=== PATIENT | female | born 1955 | race Hispanic/Latino ===

== ENCOUNTER 2016-09-19 16:45 | Emergency (ER) | payer MEDICARE, OTHER ==
[2016-09-19 16:58] VITALS: RESP 18; TEMP 98.3; O2SAT 96; BMI 27.3
[2016-09-19 17:51] VITALS: BP 122/69; PULSE 79
--- NOTE | 2016-09-19 19:13 | ED PDOC ---
Arrival/HPI - General Chief Complaint: Trauma Time Seen by Provider: 09/19/16 17:07 Historian: Patient - History of Present Illness Narrative History of Present Illness (Text): 09/19/16 17:07 A 61 year old female, whose past medical history includes herniated disc, presents to the emergency department complaining of lower back and buttock pain. Patient states she was standing on the 5th step and when she went to turn around she slipped and sled down prior to arrival. Patient did not hit her head or loss consciousness. Pain does not radiate down the lower extremities. Patient denies any any bowel/bladder incontinence, saddle anesthesia, or any other complaints at this time. Patient denies any symptom prior to the fall. PMD: Dr Santillan Time/Duration: Prior to Arrival Symptom Onset: Sudden Symptom Course: Unchanged Quality: Other Activities at Onset: Rest Context: Standing Past Medical History - Provider Review Nursing Documentation Reviewed: Yes - Infectious Disease Hx of Infectious Diseases: None - Tetanus Immunization Tetanus Immunization: Unknown - Reproductive Menopause: Yes - Cardiac Hx Pacemaker: No - Pulmonary Other/Comment: patient active heavy smoker - Neurological Hx Paralysis: No - HEENT Other/Comment: tonsillectomy as a child - Endocrine/Metabolic Hx Hypothyroidism: Yes - Hematological/Oncological Hx Blood Transfusions: No Hx Blood Transfusion Reaction: No - Integumentary Other/Comment: October 2013- 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 - Dr Doyle [facility] - Musculoskeletal/Rheumatological Hx Musculoskeletal Disorders: Yes - Gastrointestinal Other/Comment: history of gastric sleeve at [facility] jan 2014, also inguinal hernia repair surgery at same time, pt states she has lost 125 pounds since her surgery - Genitourinary/Gynecological Hx Genitourinary Disorders: Yes Hx Urinary Tract Infection: Yes Other/Comment: history of bladder lift 10 years ago and then bladder mesh 5 years ago - Psychiatric Hx Emotional Abuse: No Hx Physical Abuse: No Hx Substance Use: No - Surgical History Hx Cholecystectomy: Yes - Anesthesia Hx Anesthesia Reactions: No Hx Malignant Hyperthermia: No - Suicidal Assessment Feels Threatened In Home Enviroment: No Family/Social History - Physician Review Nursing Documentation Reviewed: Yes Family/Social History: Unknown Family HX Smoking Status: Heavy Smoker > 10 Cigarettes Daily Hx Alcohol Use: Yes Frequency of alcohol use: Socially Hx Substance Use: No Hx Substance Use Treatment: No Allergies/Home Meds Allergies/Adverse Reactions: Allergies codeine Allergy (Verified 09/19/16 16:56) ANAPHYLAXIS diazepam Allergy (Verified 09/19/16 16:56) ANAPHYLAXIS EGG Allergy (Verified 09/19/16 16:56) ANAPHYLAXIS iodine Allergy (Verified 09/19/16 16:56) SWELLING shellfish derived Allergy (Verified 09/19/16 16:56) SWELLING Home Medications: Home Meds Medication Instructions Recorded Confirmed Levothyroxine Sodium 137 mcg PO DAILY 07/17/12 12/30/14 [Levothyroxine] Simvastatin 10 mg PO DAILY 07/17/12 12/30/14 Biotin 1,000 mcg PO DAILY 02/07/14 12/30/14 Calcium Citrate 500 mg PO BID 02/07/14 12/30/14 Cyanocobalamin [Vitamin B12] 500 mcg PO DAILY 10/01/14 12/30/14 Meloxicam [Mobic] 15 mg PO DAILY 10/28/14 12/30/14 Omeprazole [Prilosec] 20 mg PO DAILY 10/28/14 12/30/14 Ped Multivit 43/Iron Fumarate 1 ctb PO DAILY 10/28/14 12/30/14 [Flintstones Complete] Tramadol HCl [Ultram] 1 tab PO TID 11/04/14 12/30/14 Review of Systems - Physician Review All systems were reviewed & negative as marked: Yes - Review of Systems Constitutional: absent: Other (head trauma) Musculoskeletal: Back Pain Neurological: absent: Headache, Dizziness, Focal Weakness, Other (saddle anesthesia) Physical Exam Vital Signs Reviewed: Yes Vital Signs Temp Pulse Resp BP Pulse Ox 09/19/16 17:51 79 18 122/69 96 09/19/16 16:57 98.3 F 84 18 124/74 96 Temperature: Afebrile Blood Pressure: Normal Pulse: Regular Respiratory Rate: Normal Appearance: Positive for: Well-Appearing, Non-Toxic, Comfortable Pain Distress: None Mental Status: Positive for: Alert and Oriented X 3 - Systems Exam Head: Present: Atraumatic, Normocephalic Pupils: Present: PERRL Extroacular Muscles: Present: EOMI Conjunctiva: Present: Normal Mouth: Present: Moist Mucous Membranes Neck: Present: Normal Range of Motion Respiratory/Chest: Present: Clear to Auscultation, Good Air Exchange. No: Respiratory Distress, Accessory Muscle Use Cardiovascular: Present: Regular Rate and Rhythm, Normal S1, S2. No: Murmurs Abdomen: Present: Normal Bowel Sounds. No: Tenderness, Distention, Peritoneal Signs Back: Present: Other (diffuse tenderness to L4-L5 and sacral region.) Upper Extremity: Present: Normal Inspection. No: Cyanosis, Edema Lower Extremity: Present: Normal Inspection. No: Edema Neurological: Present: GCS=15, CN II-XII Intact, Speech Normal Skin: Present: Warm, Dry, Normal Color. No: Rashes Psychiatric: Present: Alert, Oriented x 3, Normal Insight, Normal Concentration Medical Decision Making ED Course and Treatment: 09/19/16 17:07 Impression: A 61 year old female with lower back pain after a mechanical fall. Differential Diagnosis include but are not limited to: fractures vs. sprain Plan: -- Lumbar CT -- Flexeril and Motrin -- Reassess and disposition Progress Notes: 09/19/16 19:00 Case signed out to Dr. Zamarripa, pending imaging, reevaluation and disposition. - RAD Interpretation Radiology Orders: 09/19/16 17:24 LUMBAR SPINE W/O CONTRAST [CT] Stat - Medication Orders Current Medication Orders: Discontinued Medications Cyclobenzaprine HCl (Flexeril) 10 mg PO STAT STA Stop: 09/19/16 17:26 Last Admin: 09/19/16 17:37 Dose: 10 mg Cyclobenzaprine HCl (Flexeril) 10 mg PO ONCE ONE Stop: 09/19/16 20:43 Last Admin: 09/19/16 21:01 Dose: Ibuprofen (Motrin Tab) 600 mg PO STAT STA Stop: 09/19/16 17:26 Last Admin: 09/19/16 17:37 Dose: 600 mg - Scribe Statement The provider has reviewed the documentation as recorded by the Lobo Mar Provider Scribe Attestation: All medical record entries made by the Lobo were at my direction and personally dictated by me. I have reviewed the chart and agree that the record accurately reflects my personal performance of the history, physical exam, medical decision making, and the department course for this patient. I have also personally directed, reviewed, and agree with the discharge instructions and disposition. Disposition/Present on Arrival - Present on Arrival Any Indicators Present on Arrival: No History of DVT/PE: No History of Uncontrolled Diabetes: No Urinary Catheter: No History of Decub. Ulcer: No History Surgical Site Infection Following: None - Disposition Have Diagnosis and Disposition been Completed?: Yes Diagnosis: Lower back injury, Contusion, Muscle spasm Disposition: HOME/ ROUTINE Disposition Time: 19:00 Condition: IMPROVED Discharge Instructions (ExitCare): Acute Low Back Pain (ED), Contusion in Adults (ED), Muscle Spasm (ED) Additional Instructions: Rest/ no strenuous physical activity/take meds as prescribed/follow up with your doctor this week Prescriptions: Cyclobenzaprine [Cyclobenzaprine HCl] 10 mg PO TID PRN #15 tab PRN Reason: Muscle Spasm Ibuprofen [Motrin] 600 mg PO TID PRN #15 tab PRN Reason: Pain, Moderate (4-7) Referrals: Matt Mcghee MD [Primary Care Provider] - Follow up with primary
--- NOTE | 2016-09-19 19:25 | ED PDOC ---
Physical Exam Vital Signs Reviewed: Yes Vital Signs Temp Pulse Resp BP Pulse Ox 09/19/16 17:51 79 18 122/69 96 09/19/16 16:57 98.3 F 84 18 124/74 96 Temperature: Afebrile Blood Pressure: Normal Pulse: Regular Respiratory Rate: Normal Appearance: Positive for: Well-Appearing, Non-Toxic, Comfortable Pain Distress: None Mental Status: Positive for: Alert and Oriented X 3 Medical Decision Making ED Course and Treatment: 09/19/16 19:00 Case signed out to me from the day shift by Dr. Woody, pending imaging, reevaluation and disposition. The patient is a 61 year old female come comes in for evaluation for lower back pain after a mechanical fall. On reevaluation the patient is laying in bed awaiting CT results. 09/19/16 29:48 LUMBAR SPINE W/O CONTRAST : Creator : Danette Morejon MD COMPARISON: None is available. FINDINGS: VERTEBRAE: Findings compatible with a normal variant involving the left transverse process of L1. No acute fractures are seen. No evidence of acute vertebral compression fractures. No evidence of significant vertebral subluxation. DISCS/SPINAL CANAL/NEURAL FORAMINA: Minimal to mild multilevel degenerative disc disease. Intervertebral disc heights are preserved. No evidence of bony spinal canal stenosis. SOFT TISSUES: Diffuse infiltrative hyperdense soft tissue is seen in the subcutaneous fat of the left lower back, extending craniocaudally from the L4 through S4 levels, presumably representing post traumatic hemorrhagic subcutaneous contusion. There is no focal, measurable large soft tissue hematoma seen. KIDNEYS AND URETERS: Low density probable cyst in the right kidney. IMPRESSION: - No acute lumbar spine fractures identified. - Findings which are most likely secondary to diffuse hemorrhagic subcutaneous contusion in the left lower back soft tissues. Recommend clinical correlation. - See above for remaining findings. On reevaluation, the patient states she feels 100 percent better and is requesting a flexiril tab to take home for later tonight because she is unable to go to the pharmacy tonight. I have discussed the results and plan with the patient, who expresses understanding. Patient in agreement with plan to discharged home. Patient is stable for discharge. Patient was instructed to follow up with physician/clinic in 1-2 days or return if symptoms worsen or new concerning symptoms arise. - RAD Interpretation Radiology Orders: 05/08/17 17:24 LUMBAR SPINE W/O CONTRAST [CT] Stat - Medication Orders Current Medication Orders: Discontinued Medications Cyclobenzaprine HCl (Flexeril) 10 mg PO STAT STA Stop: 09/19/16 17:26 Last Admin: 09/19/16 17:37 Dose: 10 mg Cyclobenzaprine HCl (Flexeril) 10 mg PO ONCE ONE Stop: 09/19/16 20:43 Last Admin: 09/19/16 21:01 Dose: Ibuprofen (Motrin Tab) 600 mg PO STAT STA Stop: 09/19/16 17:26 Last Admin: 09/19/16 17:37 Dose: 600 mg - Scribe Statement The provider has reviewed the documentation as recorded by the Lobo Mar Provider Eloinaibe Attestation: All medical record entries made by the Lobo were at my direction and personally dictated by me. I have reviewed the chart and agree that the record accurately reflects my personal performance of the history, physical exam, medical decision making, and the department course for this patient. I have also personally directed, reviewed, and agree with the discharge instructions and disposition. Disposition/Present on Arrival - Present on Arrival Any Indicators Present on Arrival: No History of DVT/PE: No History of Uncontrolled Diabetes: No Urinary Catheter: No History of Decub. Ulcer: No History Surgical Site Infection Following: None - Disposition Have Diagnosis and Disposition been Completed?: Yes Diagnosis: Lower back injury, Contusion, Muscle spasm Disposition: HOME/ ROUTINE Disposition Time: 20:43 Patient Plan: Discharge Condition: GOOD Discharge Instructions (ExitCare): Acute Low Back Pain (ED), Contusion in Adults (ED), Muscle Spasm (ED) Additional Instructions: Rest/ no strenuous physical activity/take meds as prescribed/follow up with your doctor this week Prescriptions: Cyclobenzaprine [Cyclobenzaprine HCl] 10 mg PO TID PRN #15 tab PRN Reason: Muscle Spasm Ibuprofen [Motrin] 600 mg PO TID PRN #15 tab PRN Reason: Pain, Moderate (4-7) Referrals: Matt Mcghee MD [Primary Care Provider] - Follow up with primary
--- NOTE | 2016-09-19 19:46 | CT ---
EXAM: CT Lumbar Spine Without Intravenous Contrast CLINICAL HISTORY: 61 years old, female; Pain; Low back pain; Additional info: R/O FX TECHNIQUE: Axial computed tomography images of the lumbar spine without intravenous contrast. This CT exam was performed using one or more of the following dose reduction techniques: automated exposure control, adjustment of the mA and/or kV according to patient size, and/or use of iterative reconstruction technique. Coronal and sagittal reformatted images were created and reviewed. EXAM DATE/TIME: 09/19/2016 5:24 PM COMPARISON: None is available. FINDINGS: VERTEBRAE: Findings compatible with a normal variant involving the left transverse process of L1. No acute fractures are seen. No evidence of acute vertebral compression fractures. No evidence of significant vertebral subluxation. DISCS/SPINAL CANAL/NEURAL FORAMINA: Minimal to mild multilevel degenerative disc disease. Intervertebral disc heights are preserved. No evidence of bony spinal canal stenosis. SOFT TISSUES: Diffuse infiltrative hyperdense soft tissue is seen in the subcutaneous fat of the left lower back, extending craniocaudally from the L4 through S4 levels, presumably representing post traumatic hemorrhagic subcutaneous contusion. There is no focal, measurable large soft tissue hematoma seen. KIDNEYS AND URETERS: Low density probable cyst in the right kidney. IMPRESSION: - No acute lumbar spine fractures identified. - Findings which are most likely secondary to diffuse hemorrhagic subcutaneous contusion in the left lower back soft tissues. Recommend clinical correlation. - See above for remaining findings.
== END 2016-09-19 21:01 | disposition home or self-care (01) ==
LOC: ED 16:45
DX: S30.0XXA Contusion of lower back and pelvis, initial encounter (principal); W10.8XXA Fall (on) (from) other stairs and steps, initial encounter; Y92.89 Other specified places as the place of occurrence of the external cause; M62.838 Other muscle spasm

== ENCOUNTER 2017-06-04 06:48 | Emergency (ER) | payer MEDICARE, OTHER ==
[2017-06-04 06:49] VITALS: BMI 27.3
[2017-06-04 07:09] VITALS: RESP 18; TEMP 97.9
[2017-06-04] MEDS ORDERED: Albuterol-Ipratrop 3 mg / 0.5 (3 ml) UD ONE (07:29)
[2017-06-04] MEDS ORDERED: Albuterol-Ipratrop 3 mg / 0.5 (3 ml) UD IH STA ×3 (07:48)
--- NOTE | 2017-06-04 08:07 | ED PDOC ---
Arrival/HPI - General Chief Complaint: Flu-like Symptoms Time Seen by Provider: 06/04/17 07:47 Historian: Patient - History of Present Illness Narrative History of Present Illness (Text): 06/04/17 08:04 A 62 year old female, whose past medical history includes COPD, cholelithiasis, asthma, and pancreatitis, presents to the emergency department for shortness of breath and productive cough with yellow sputum,. The patient states she was diagnosed with the flu 6 days ago at her doctors office. Yesterday and today the patient noticed her breathing has become more labored. She states it feels the same as her asthma but that she has not had an asthma attack in 20 years. The patient denies any nausea, vomiting, diarrhea, fever, or any other complaints at this time. Time/Duration: < week (x 6 days) Symptom Onset: Gradual Symptom Course: Unchanged Severity Level: Mild Context: Home Past Medical History - Provider Review Nursing Documentation Reviewed: Yes - Infectious Disease Hx of Infectious Diseases: None - Tetanus Immunization Tetanus Immunization: Unknown - Cardiac Hx Pacemaker: No - Pulmonary Other/Comment: patient active heavy smoker - Neurological Hx Paralysis: No - HEENT Other/Comment: tonsillectomy as a child - Endocrine/Metabolic Hx Hypothyroidism: Yes - Hematological/Oncological Hx Blood Transfusions: No Hx Blood Transfusion Reaction: No - Integumentary Other/Comment: October 2013- 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 - Dr Doyle [facility] - Musculoskeletal/Rheumatological Hx Musculoskeletal Disorders: Yes - Gastrointestinal Other/Comment: history of gastric sleeve at [facility] jan 2014, also inguinal hernia repair surgery at same time, pt states she has lost 125 pounds since her surgery - Genitourinary/Gynecological Hx Genitourinary Disorders: Yes Hx Urinary Tract Infection: Yes Other/Comment: history of bladder lift 10 years ago and then bladder mesh 5 years ago - Psychiatric Hx Emotional Abuse: No Hx Physical Abuse: No Hx Substance Use: No - Surgical History Hx Cholecystectomy: Yes - Anesthesia Hx Anesthesia Reactions: No Hx Malignant Hyperthermia: No - Suicidal Assessment Feels Threatened In Home Enviroment: No Family/Social History - Physician Review Nursing Documentation Reviewed: Yes Family/Social History: No Known Family HX Smoking Status: Heavy Smoker > 10 Cigarettes Daily Hx Alcohol Use: Yes Hx Substance Use: No Hx Substance Use Treatment: No Allergies/Home Meds Allergies/Adverse Reactions: Allergies codeine Allergy (Verified 09/19/16 16:56) ANAPHYLAXIS diazepam Allergy (Verified 09/19/16 16:56) ANAPHYLAXIS EGG Allergy (Verified 09/19/16 16:56) ANAPHYLAXIS iodine Allergy (Verified 09/19/16 16:56) SWELLING shellfish derived Allergy (Verified 09/19/16 16:56) SWELLING Home Medications: Home Meds Medication Instructions Recorded Confirmed Omeprazole [Prilosec] 20 mg PO DAILY 10/28/14 06/04/17 Biotin [Biotin] 1,000 mcg PO DAILY 06/04/17 06/04/17 Levothyroxine Sodium [Levoxyl] 137 mcg PO DAILY 06/04/17 06/04/17 Review of Systems - Physician Review All systems were reviewed & negative as marked: Yes - Review of Systems Constitutional: absent: Fevers Respiratory: SOB, Cough, Sputum Gastrointestinal: absent: Diarrhea, Nausea, Vomiting Physical Exam - Physical Exam Narrative Physical Exam (Text): Constitutional: No acute distress. Head: Normocephalic. Atraumatic. Eyes: PERRL. ENT: Moist mucous membranes. Neck: Supple. Cardiovascular: Regular rate. Chest: No tenderness. Respiratory: diffuse wheezing bilaterally. GI: Soft. Nontender. Nondistended. Back: No CVA tenderness. Musculoskeletal: No tenderness or swelling of extremities. Skin: No rash. Neurologic: Alert, no focal deficit. Vital Signs Temp Pulse Resp BP Pulse Ox 06/04/17 07:04 97.9 F 67 18 106/69 93 L Medical Decision Making ED Course and Treatment: 06/04/17 08:06 Impression: A 62 year old female with shortness of breath, actively coughing with sputum. Differential Diagnosis included but are not limited to: Plan: -- Chest X-ray -- Duoneb, prednisone -- Reassess and disposition Progress Notes: Chest X-ray Impression: no focal consolidation, significant pleural effusion, or definitie pneumothorax identified. Patient feels breathing is much better. Feels tremulous after breathing treatments. Will continue inhaler at home, steroids, f/u PMD, instructed to come back to ED immediately for worsening breathing, pain, vomiting, fever, or any other problem. - RAD Interpretation Radiology Orders: 06/04/17 07:47 CHEST TWO VIEWS (PA/LAT) [RAD] Stat - Medication Orders Current Medication Orders: Discontinued Medications Albuterol/Ipratropium (Duoneb 3 Mg/0.5 Mg (3 Ml) Ud) 3 ml IH STAT STA Stop: 06/04/17 07:49 Last Admin: 06/04/17 08:21 Dose: Albuterol/Ipratropium (Duoneb 3 Mg/0.5 Mg (3 Ml) Ud) 3 ml IH STAT STA Stop: 06/04/17 07:49 Last Admin: 06/04/17 08:25 Dose: 3 ml Albuterol/Ipratropium (Duoneb 3 Mg/0.5 Mg (3 Ml) Ud) 3 ml IH STAT STA Stop: 06/04/17 07:49 Last Admin: 06/04/17 08:25 Dose: 3 ml Prednisone (Prednisone Tab) 60 mg PO STAT ONE Stop: 06/04/17 07:49 Last Admin: 06/04/17 08:24 Dose: 60 mg - Scribe Statement The provider has reviewed the documentation as recorded by the Lobo Seo Provider Scribe Attestation: All medical record entries made by the Lobo were at my direction and personally dictated by me. I have reviewed the chart and agree that the record accurately reflects my personal performance of the history, physical exam, medical decision making, and the department course for this patient. I have also personally directed, reviewed, and agree with the discharge instructions and disposition. Disposition/Present on Arrival - Present on Arrival Any Indicators Present on Arrival: No History of DVT/PE: No History of Uncontrolled Diabetes: No Urinary Catheter: No History of Decub. Ulcer: No History Surgical Site Infection Following: None - Disposition Have Diagnosis and Disposition been Completed?: Yes Diagnosis: COPD exacerbation Disposition: HOME/ ROUTINE Disposition Time: 09:13 Patient Plan: Discharge Condition: STABLE Discharge Instructions (ExitCare): COPD (Chronic Obstructive Pulmonary Disease ) (ED) Prescriptions: Albuterol HFA [Ventolin HFA 90 mcg/actuation (8 g)] 2 puff IH Q6 #1 inhaler Prednisone [Deltasone] 3 tab PO DAILY #12 tablet Referrals: Matt Mcghee MD [Primary Care Provider] - Follow up with primary Forms: [employer] (Bulgarian)
--- NOTE | 2017-06-04 08:53 | RAD ---
HISTORY: cough COMPARISON: Chest x-ray performed 12/30/14 TECHNIQUE: Chest PA and lateral FINDINGS: Examination limited by habitus. LUNGS: No focal consolidation. Please note that chest x-ray has limited sensitivity for the detection of pulmonary masses. PLEURA: No significant pleural effusion identified. No definite pneumothorax . CARDIOVASCULAR: Heart size appears within normal limits. Atherosclerotic calcifications of the aorta. OSSEOUS STRUCTURES: No acute osseous abnormality identified. VISUALIZED UPPER ABDOMEN: Unremarkable. OTHER FINDINGS: None. IMPRESSION: No focal consolidation, significant pleural effusion, or definite pneumothorax identified.
[2017-06-04 09:25] VITALS: BP 123/79; PULSE 92; O2SAT 95
== END 2017-06-04 09:25 | disposition home or self-care (01) ==
LOC: ED 06:48
DX: J44.1 Chronic obstructive pulmonary disease with (acute) exacerbation (principal); E03.9 Hypothyroidism, unspecified; F17.210 Nicotine dependence, cigarettes, uncomplicated

== ENCOUNTER 2018-06-25 10:42 | Outpatient (CLI) | payer MEDICARE, OTHER | END 2018-06-25 10:43 | disposition home or self-care (01) | LOC: RAD 10:42 | DX: M54.9 Dorsalgia, unspecified (principal); R35.0 Frequency of micturition ==

== ENCOUNTER 2018-07-23 08:00 | Outpatient (CLI) | payer MEDICARE, OTHER | END 2018-07-23 08:01 | disposition home or self-care (01) | LOC: RAD 08:00 ==

== ENCOUNTER 2018-07-24 13:14 | Outpatient (CLI) | payer MEDICARE, OTHER | END 2018-07-24 13:15 | disposition home or self-care (01) | LOC: RAD 13:14 | DX: Z12.31 Encounter for screening mammogram for malignant neoplasm of breast (principal) ==

== ENCOUNTER 2018-09-14 09:55 | Day surgery (SDC) | payer MEDICARE, OTHER ==
[2018-09-14 10:48] VITALS: BMI 34.3
[2018-09-14] MEDS ORDERED: Sodium Chloride 0.9% 1,000 ML IV SCH (12:30)
[2018-09-14] MEDS ORDERED: Propofol 10 mg/ml Inj (20 ML) ONE (12:43)
[2018-09-14] MEDS ORDERED: ePHEDrine 50 mg/ml Inj ONE (13:13)
[2018-09-14 16:45] VITALS: BP 115/61; PULSE 76; RESP 16; TEMP 97.7; O2SAT 96
== END 2018-09-14 15:31 | disposition home or self-care (01) ==
LOC: ENDO 09:55
PROVIDERS: ATTEND Internal Medicine Gastroenterology
DX: K55.20 Angiodysplasia of colon without hemorrhage (principal); K64.0 First degree hemorrhoids; K21.9 Gastro-esophageal reflux disease without esophagitis; J44.9 Chronic obstructive pulmonary disease, unspecified; E03.9 Hypothyroidism, unspecified; Z98.84 Bariatric surgery status
CPT/HCPCS: 45380; 45381; 45384; 88305; J2001; J2704; J7030; J7040